=== PATIENT | female | born 1975 | race Caucasian/White ===

== ENCOUNTER → 2016-12-23 | Outpatient (CLI) | payer BC | LOC: FIMAGING 15:34 | PROVIDERS: ATTEND Family Medicine | DX: Z12.31 Encounter for screening mammogram for malignant neoplasm of breast (principal) | CPT/HCPCS: G0202 ==

== ENCOUNTER 2017-10-09 12:17 | Emergency (ER) | payer BC ==
[2017-10-09 12:22] VITALS: TEMP 98.1
--- NOTE | 2017-10-09 12:57 | CPEKG ---
Heart Rate: 75 RR Interval: 800 P-R Interval: 128 QRSD Interval: 104 QT Interval: 384 QTC Interval: 429 P [place]: 42 QRS [place]: 26 T Wave [place]: 6 EKG Severity - NORMAL ECG - EKG Impression: SINUS RHYTHM Electronically Signed By: Anjel Enriquez 09-Oct-2017 13:31:42
[2017-10-09 13:24] LABS: PLATELET COUNT 362 10^3/uL (150-400)
[2017-10-09 14:11] VITALS: RESP 18
--- NOTE | 2017-10-09 14:19 | EDPHY ---
H & P Time Seen by Provider: 10/09/17 12:44 HPI/ROS: CHIEF COMPLAINT: Left calf pain, shortness of breath HISTORY OF PRESENT ILLNESS: 42-year-old female presents to the emergency department with left calf pain that started in the middle of the night around 12 :30 a.m. That woke up out of her sleep. The she states that it resolved and she went back to bed. She states when she woke up she felt mildly short of breath. She has no pain in her chest. Specifically denies pleuritic chest pain. No fevers or chills. No recent travel. No abdominal pain. No headache. She denies calf swelling. She still has some mild pain in her left calf now that occurred this morning but now it is more along the lateral aspect of her left calf. She denies any reported trauma. No pain in her left knee or ankle. She has had an ongoing cough. She had cold symptoms over 1 month ago which improved although she developed recurring cough today. REVIEW OF SYSTEMS: Constitutional: No fever, no chills. Eyes: No double or blurry vision. ENT: No sore throat. Respiratory: Shortness of breath. Ongoing chronic cough for several weeks. Cardiac: No chest pain. Gastrointestinal: No abdominal pain, vomiting or diarrhea. Genitourinary: No dysuria. Musculoskeletal: No neck or back pain. Skin: No rashes. Neurological: No headache. Past Medical/Surgical History: Hyperlipidemia, migraine headaches, GERD, PVCs Social History: and lives alone Smoking Status: Never smoked Physical Exam: General Appearance: Alert, no distress. 96% on room air. Afebrile. Eyes: Pupils equal and round. Extraocular motions are all intact. ENT: Mouth: Mucous membranes moist. Respiratory: No wheezing, rhonchi, or rales, lungs are clear to auscultation. Cardiovascular: Regular rate and rhythm. Gastrointestinal: Abdomen is soft and nontender, no masses, no rebound or guarding, bowel sounds normal. Neurological: Alert and oriented x 3, cranial nerves II through XII grossly intact Skin: Warm and dry, no rashes. Musculoskeletal: Nontender to palpate along the cervical, thoracic or lumbar spine. Neck is supple. Extremities: Mild pain with palpation to the left posterior lateral aspect of her left knee specially overlying the left semi tendinosis tendon. No palpable crepitus or other bony abnormality. Full range of motion of her upper lower extremities. Psychiatric: Patient is oriented X 3, there is no agitation. Constitutional: Initial Vital Signs Temperature (C) 36.7 C 10/09/17 12:20 Heart Rate 98 10/09/17 12:20 Respiratory Rate 20 10/09/17 12:20 Blood Pressure 189/121 H 10/09/17 12:20 O2 Sat (%) 96 10/09/17 12:20 O2 Delivery Mode Room Air O2 (L/minute) 37.0 Allergies/Adverse Reactions: Penicillins Allergy (Verified 10/09/17 12:19) sumatriptan [From Imitrex] Allergy (Verified 10/09/17 12:19) decongestants Allergy (Uncoded 10/09/17 12:19) Home Medications: Medication Instructions Recorded Maxalt 10/09/17 Omeprazole 10/09/17 Pravastatin Sodium 10/09/17 Medical Decision Making - Diagnostics Imaging Results: Imaging Impressions Chest X-Ray 10/09/17 13:19 Impression: Mild bronchitis. No pneumonia or effusion. Extremity Venous Study 10/09/17 13:19 Impression: No evidence of deep vein thrombosis. Findings discussed with MARTA ARAGON 10/09/2017 at 14:02. Imaging: Discussed imaging studies w/ resident physician Radiologist ED Course/Re-evaluation: 42-year-old female presents to the emergency department with left calf pain and feels short of breath. The patient was concerned about possible DVT. Doppler ultrasound of the left lower extremity reveals no evidence of DVT. Chest x-ray was obtained which revealed no evidence of pneumonia or pneumothorax. Her O2 saturation was normal. Patient has no pleuritic chest pain. I doubt pulmonary embolism. Laboratory studies including troponin were all within normal limits. The patient was reassured. I do not think further imaging studies or laboratory testing is indicated. She feels comfortable being discharged home. I doubt pulmonary embolism. I did recommend that she follow up with her primary care provider this week to recheck and return sooner if she feels short of breath, increasing pain, or any other concerns. The case was discussed with Dr. Anjel Enriquez, secondary supervising physician, who did not directly evaluate the patient but agrees with treatment and plan. Differential Diagnosis: Shortness of breath including but not limited to pulmonary infectious process, COPD, asthma, pulmonary embolus and congestive heart failure. Calf pain including but not limited to musculoskeletal calf pain, DVT, muscular spasm, tendinitis - Data Points Laboratory Results: Laboratory Results 10/09/17 12:53 10/09/17 12:53 10/09/17 10/09/17 12:53 12:53 WBC 6.75 10^3/uL 10^3/uL (3.80-9.50) RBC 5.55 10^6/uL H 10^6/uL (4.18-5.33) Hgb 16.4 g/dL H g/dL (12.6-16.3) Hct 47.2 % H % (38.0-47.0) MCV 85.0 fL fL (81.5-99.8) MCH 29.5 pg pg (27.9-34.1) MCHC 34.7 g/dL g/dL (32.4-36.7) RDW 12.6 % % (11.5-15.2) Plt Count 362 10^3/uL 10^3/uL (150-400) MPV 9.4 fL fL (8.7-11.7) Neut % (Auto) 50.4 % % (39.3-74.2) Lymph % (Auto) 41.0 % % (15.0-45.0) [place] % (Auto) 5.5 % % (4.5-13.0) Eos % (Auto) 2.2 % % (0.6-7.6) Baso % (Auto) 0.6 % % (0.3-1.7) Nucleat RBC Rel Count 0.0 % % (0.0-0.2) Absolute Neuts (auto) 3.40 10^3/uL 10^3/uL (1.70-6.50) Absolute Lymphs (auto) 2.77 10^3/uL 10^3/uL (1.00-3.00) Absolute Monos (auto) 0.37 10^3/uL 10^3/uL (0.30-0.80) Absolute Eos (auto) 0.15 10^3/uL 10^3/uL (0.03-0.40) Absolute Basos (auto) 0.04 10^3/uL 10^3/uL (0.02-0.10) Absolute Nucleated RBC 0.00 10^3/uL 10^3/uL (0-0.01) Immature Gran % 0.3 % % (0.0-1.1) Immature Gran # 0.02 10^3/uL 10^3/uL (0.00-0.10) Sodium 139 mEq/L mEq/L (135-145) Potassium 4.4 mEq/L mEq/L (3.5-5.2) Chloride 103 mEq/L mEq/L (97-110) Carbon Dioxide 22 mEq/l mEq/l (22-31) Anion Gap 14 mEq/L mEq/L (8-16) BUN 12 mg/dL mg/dL (7-23) Creatinine 0.8 mg/dL mg/dL (0.6-1.0) Estimated GFR > 60 Glucose 91 mg/dL mg/dL (70-100) Calcium 9.6 mg/dL mg/dL (8.5-10.4) Troponin I < 0.012 ng/mL ng/mL (0.000-0.034) Departure - Departure Disposition: Home, Routine, Self-Care Clinical Impression: Left leg pain, Cough Condition: Good Instructions: Acute Cough (ED), Leg Pain (ED) Additional Instructions: Return to the emergency department if you developed shortness of breath, chest pain, or if you feel worse in any way. Activity as tolerated. Referrals: Whitney Gaxiola MD [Primary Care Provider] - 2-3 days, call for appt.
[2017-10-09 14:54] VITALS: BP 162/130; PULSE 97; O2SAT 90
== END 2017-10-09 14:54 | disposition home or self-care (01) ==
DX: M79.605 Pain in left leg (principal); R05 Cough

== ENCOUNTER → 2017-12-06 | Outpatient (CLI) | payer BC | LOC: FIMAGING 14:23 | PROVIDERS: ATTEND Internal Medicine | DX: Z12.31 Encounter for screening mammogram for malignant neoplasm of breast (principal) ==